=== PATIENT | male | born 1965 | race Caucasian/White ===

== ENCOUNTER 2023-03-21 12:44 | Inpatient (IN) | payer OTHER ==
[2023-03-21 13:03] VITALS: BMI 28.4
[2023-03-21] MEDS ORDERED: NALOXONE HCL 0.4 MG/ML VIAL IM PRN (13:56)
[2023-03-21] MEDS ORDERED: hydrOXYzine PAMOATE 25 MG CAPSULE (FP) PO PRN (13:56)
[2023-03-21] MEDS ORDERED: COLLOIDAL OATMEAL 1 BAR EACH TP PRN (13:56)
[2023-03-21] MEDS ORDERED: IBUPROFEN 600 MG TABLET (FP) PO PRN (13:56)
[2023-03-21] MEDS ORDERED: POLYETHYLENE GLYCOL (HEALTHYLAX) 3350 17 GM PACKET PO PRN (13:56)
[2023-03-21] MEDS ORDERED: NALOXONE HCL (KLOXXADO) 8 MG SPRAY NS PRN (13:56)
[2023-03-21] MEDS ORDERED: BENZONATATE 200 MG CAPSULE PO PRN (13:56)
[2023-03-21] MEDS ORDERED: ACETAMINOPHEN 325 MG TABLET (FP) PO PRN (13:56)
[2023-03-21] MEDS ORDERED: NICOTINE POLACRILEX 2 MG GUM BUC PRN (13:56)
[2023-03-21] MEDS ORDERED: guaiFENesin 600 MG TABLET.ER (FP) PO PRN (13:56)
[2023-03-21] MEDS ORDERED: IBUPROFEN 400 MG TABLET (FP) PO PRN (13:56)
[2023-03-21] MEDS ORDERED: MAGNESIUM HYDROX 2400MG/30ML ORAL SUSPENSION 30 ML CUP PO PRN (13:56)
[2023-03-21] MEDS ORDERED: TUBERCULIN PPD 5 TU/0.1ML VIAL ID ONE (16:39)
[2023-03-21] MEDS: MAG HYDROX/AL HYDROX/SIMETH 30 ML UNIT-DOSE CUP PO PRN (16:49)
[2023-03-21] MEDS ORDERED: TUBERCULIN PPD 5 TU/0.1ML SYRINGE (IN PATIENT USE ONLY) ID ONE (17:58)
[2023-03-21] MEDS: MELATONIN 5 MG TABLETS PO SCH (22:11)
[2023-03-21] MEDS: THIAMINE HCL 100 MG TABLET (FP) PO SCH (22:11)
[2023-03-22] MEDS: PRENATAL VITAMINS W/ FOLIC ACID TABLET (FP) PO SCH (09:24)
[2023-03-22] MEDS: NICOTINE 14 MG/24 HOURS TOPICAL PATCH TD SCH (09:24)
[2023-03-22] MEDS: LOPERAMIDE HCL 2 MG CAPSULE PO PRN (09:26)
[2023-03-22 13:08] LABS: HEMATOCRIT 42.3 % (35.4-49); MCH 29.4 pg (25.7-33.7); MEAN CELL VOLUME 89.1 fl (80-96); MEAN PLT VOLUME 9.6 fl (7.5-11.1); PLATELET COUNT 327 10^3/uL (134-434); RBC 4.76 M/mm3 (4.00-5.60); RDW 14.6 % (11.9-15.9); WHITE BLOOD COUNT 9.1 K/mm3 (4.0-10.0)
[2023-03-22 13:21] LABS: POTASSIUM 4.5 mmol/L (3.5-5.1)
[2023-03-22 13:24] LABS: CALCIUM 9.3 mg/dL (8.5-10.1)
[2023-03-22 13:25] LABS: ALBUMIN 3.2 g/dl (3.4-5.0); BLOOD UREA NITROGEN 23.6 mg/dL (7-18)
[2023-03-22 13:28] LABS: CREATININE 1.2 mg/dL (0.55-1.3)
[2023-03-22 13:29] LABS: TOT PROT 6.3 g/dl (6.4-8.2)
[2023-03-22 13:30] LABS: BILIRUBIN,TOTAL 0.2 mg/dL (0.2-1)
[2023-03-22 13:48] LABS: SYPHILIS W/ RPR CONF NON-REACTIVE (NONREACTIVE)
[2023-03-22] MEDS: THIAMINE HCL 100 MG TABLET (FP) PO SCH (21:38)
[2023-03-22] MEDS: MELATONIN 5 MG TABLETS PO SCH (21:38)
[2023-03-23] MEDS: MAG HYDROX/AL HYDROX/SIMETH 30 ML UNIT-DOSE CUP PO PRN (09:44)
[2023-03-23] MEDS: NICOTINE 14 MG/24 HOURS TOPICAL PATCH TD SCH (09:44)
[2023-03-23] MEDS: PRENATAL VITAMINS W/ FOLIC ACID TABLET (FP) PO SCH (09:44)
[2023-03-23] MEDS ORDERED: NICOTINE 14 MG/24 HOURS TOPICAL PATCH TD PRN (14:13)
[2023-03-23 14:53] LABS: PH,URINE 5.5 (5.0-8.0); URINE APPEARANCE CLEAR; URINE BILIRUBIN NEGATIVE (NEGATIVE); URINE COLOR YELLOW; URINE GLUCOSE (UA) NEGATIVE (NEGATIVE); URINE KETONE NEGATIVE (NEGATIVE); URINE LEUK ESTERASE NEGATIVE (NEGATIVE); URINE NITRITE NEGATIVE (NEGATIVE); URINE PROTEIN NEGATIVE (NEGATIVE); URINE UROBILINOGEN 0.2 mg/dL (0.2-1.0)
[2023-03-23] MEDS: MELATONIN 5 MG TABLETS PO SCH (21:21)
[2023-03-23] MEDS: THIAMINE HCL 100 MG TABLET (FP) PO SCH (21:21)
[2023-03-23] MEDS: LOPERAMIDE HCL 2 MG CAPSULE PO PRN (21:22)
[2023-03-23 21:31] LABS: HIV INTERPRETATION NEGATIVE (NEGATIVE)
[2023-03-24] MEDS: PRENATAL VITAMINS W/ FOLIC ACID TABLET (FP) PO SCH (10:08)
[2023-03-24] MEDS: MELATONIN 5 MG TABLETS PO SCH (21:27)
[2023-03-24] MEDS: THIAMINE HCL 100 MG TABLET (FP) PO SCH (21:27)
[2023-03-24] MEDS: MAG HYDROX/AL HYDROX/SIMETH 30 ML UNIT-DOSE CUP PO PRN (21:28)
[2023-03-25] MEDS: BENZOCAINE/MENTHOL (CHLORASEPTIC ) LOZENGE MM PRN ×2 (09:53→21:30)
[2023-03-25] MEDS: PRENATAL VITAMINS W/ FOLIC ACID TABLET (FP) PO SCH (09:53)
[2023-03-25] MEDS: MAG HYDROX/AL HYDROX/SIMETH 30 ML UNIT-DOSE CUP PO PRN ×2 (09:54→21:28)
[2023-03-25] MEDS ORDERED: BENZONATATE 200 MG CAPSULE PO PRN (13:51)
[2023-03-25] MEDS: THIAMINE HCL 100 MG TABLET (FP) PO SCH (21:28)
[2023-03-25] MEDS: MELATONIN 5 MG TABLETS PO SCH (21:29)
[2023-03-26] MEDS: BENZOCAINE/MENTHOL (CHLORASEPTIC ) LOZENGE MM PRN ×2 (05:56→21:15)
[2023-03-26] MEDS: PRENATAL VITAMINS W/ FOLIC ACID TABLET (FP) PO SCH (09:15)
[2023-03-26] MEDS: MAG HYDROX/AL HYDROX/SIMETH 30 ML UNIT-DOSE CUP PO PRN ×2 (09:36→21:14)
[2023-03-26] MEDS: MELATONIN 5 MG TABLETS PO SCH (21:14)
[2023-03-26] MEDS: THIAMINE HCL 100 MG TABLET (FP) PO SCH (21:14)
[2023-03-27] MEDS: BENZOCAINE/MENTHOL (CHLORASEPTIC ) LOZENGE MM PRN ×2 (06:30→20:38)
[2023-03-27] MEDS: PRENATAL VITAMINS W/ FOLIC ACID TABLET (FP) PO SCH (09:41)
[2023-03-27] MEDS ORDERED: P-EPHED 60MG/TRIPROLIDI 2.5MG TABLET PO ONE (20:30)
[2023-03-27] MEDS: MAG HYDROX/AL HYDROX/SIMETH 30 ML UNIT-DOSE CUP PO PRN (21:20)
[2023-03-27] MEDS: THIAMINE HCL 100 MG TABLET (FP) PO SCH (21:20)
[2023-03-27] MEDS: MELATONIN 5 MG TABLETS PO SCH (21:20)
[2023-03-28] MEDS: BENZOCAINE/MENTHOL (CHLORASEPTIC ) LOZENGE MM PRN (06:35)
[2023-03-28] MEDS: PRENATAL VITAMINS W/ FOLIC ACID TABLET (FP) PO SCH (09:38)
[2023-03-28] MEDS: P-EPHED 60MG/TRIPROLIDI 2.5MG TABLET PO PRN (18:01)
[2023-03-28] MEDS: THIAMINE HCL 100 MG TABLET (FP) PO SCH (21:21)
[2023-03-28] MEDS: MELATONIN 5 MG TABLETS PO SCH (21:21)
[2023-03-29] MEDS: P-EPHED 60MG/TRIPROLIDI 2.5MG TABLET PO PRN ×2 (00:17→06:19)
[2023-03-29 08:29] VITALS: BP 122/82; PULSE 64; RESP 18; TEMP 97.3
== END 2023-03-29 09:06 | disposition home or self-care (01) | DRG 772 ==
LOC: YASAS 12:44 → Y3E 16:18
PROVIDERS: ADMIT Allergy & Immunology; ATTEND Psychiatry & Neurology Pain Medicine
PROC: HZ42ZZZ Group Counseling for Substance Abuse Treatment, Cognitive-Behavioral (ICD-10-PCS; principal; 2023-03-21)
DX: F10.20 Alcohol dependence, uncomplicated (principal); F14.20 Cocaine dependence, uncomplicated; F12.20 Cannabis dependence, uncomplicated; F17.210 Nicotine dependence, cigarettes, uncomplicated; J02.9 Acute pharyngitis, unspecified; K21.9 Gastro-esophageal reflux disease without esophagitis
CPT/HCPCS: 0241U-QW; 36415; 80053; 80307; 81003; 85027; 86780; 87389; 87635; 87811; 93005; 93010

== ENCOUNTER 2023-04-03 14:25 | Inpatient (IN) | payer OTHER ==
[2023-04-03 14:53] VITALS: BMI 26.2
[2023-04-03] MEDS ORDERED: guaiFENesin 600 MG TABLET.ER (FP) PO PRN (18:35)
[2023-04-03] MEDS ORDERED: IBUPROFEN 400 MG TABLET (FP) PO PRN (18:35)
[2023-04-03] MEDS ORDERED: BENZONATATE 200 MG CAPSULE PO PRN (18:35)
[2023-04-03] MEDS ORDERED: LOPERAMIDE HCL 2 MG CAPSULE PO PRN (18:35)
[2023-04-03] MEDS ORDERED: NALOXONE HCL 0.4 MG/ML VIAL IM PRN (18:35)
[2023-04-03] MEDS ORDERED: NALOXONE HCL (KLOXXADO) 8 MG SPRAY NS PRN (18:35)
[2023-04-03] MEDS ORDERED: ACETAMINOPHEN 325 MG TABLET (FP) PO PRN (18:35)
[2023-04-03] MEDS ORDERED: BISMUTH SUBSALICYLATE 524 MG/30 ML PO PRN (18:35)
[2023-04-03] MEDS ORDERED: MAGNESIUM HYDROX 2400MG/30ML ORAL SUSPENSION 30 ML CUP PO PRN (18:35)
[2023-04-03] MEDS ORDERED: IBUPROFEN 600 MG TABLET (FP) PO PRN (18:35)
[2023-04-03] MEDS ORDERED: BENZOCAINE/MENTHOL (CHLORASEPTIC ) LOZENGE MM PRN (18:35)
[2023-04-03] MEDS ORDERED: ONDANSETRON *ODT* 4 MG TABLET SL PRN (18:35)
[2023-04-03] MEDS ORDERED: POLYETHYLENE GLYCOL (HEALTHYLAX) 3350 17 GM PACKET PO PRN (18:35)
[2023-04-03] MEDS ORDERED: MAG HYDROX/AL HYDROX/SIMETH 30 ML UNIT-DOSE CUP PO PRN (18:35)
[2023-04-03] MEDS ORDERED: DICYCLOMINE HCL 10 MG CAPSULE PO PRN (18:35)
[2023-04-03] MEDS: MELATONIN 5 MG TABLETS PO SCH (22:40)
[2023-04-03] MEDS: hydrOXYzine PAMOATE 25 MG CAPSULE (FP) PO PRN (22:41)
[2023-04-03] MEDS: METHOCARBAMOL 500 MG TABLET PO PRN (22:41)
[2023-04-03] MEDS: THIAMINE HCL 100 MG TABLET (FP) PO SCH (22:41)
[2023-04-04] MEDS: hydrOXYzine PAMOATE 25 MG CAPSULE (FP) PO PRN ×2 (10:04→22:24)
[2023-04-04] MEDS: METHOCARBAMOL 500 MG TABLET PO PRN ×2 (10:04→22:27)
[2023-04-04] MEDS: PRENATAL VITAMINS W/ FOLIC ACID TABLET (FP) PO SCH (10:04)
[2023-04-04 13:15] LABS: HEMATOCRIT 39.5 % (35.4-49); HEMOGLOBIN 12.9 GM/dL (11.7-16.9); MCH 29.5 pg (25.7-33.7); MCHC 32.8 g/dl (32.0-35.9); MEAN CELL VOLUME 89.9 fl (80-96); MEAN PLT VOLUME 8.7 fl (7.5-11.1); PLATELET COUNT 305 10^3/uL (134-434); RBC 4.39 M/mm3 (4.00-5.60); RDW 14.5 % (11.9-15.9); WHITE BLOOD COUNT 9.3 K/mm3 (4.0-10.0)
[2023-04-04 13:20] LABS: CHLORIDE 107 mmol/L (98-107); POTASSIUM 4.5 mmol/L (3.5-5.1); SODIUM 141 mmol/L (136-145)
[2023-04-04 13:28] LABS: ANION GAP 7 mmol/L (4-13); CALCIUM 9.1 mg/dL (8.5-10.1); CO2 26 mmol/L (21-32); GLUCOSE,RANDOM 68 mg/dL (74-106)
[2023-04-04 13:29] LABS: BLOOD UREA NITROGEN 18.6 mg/dL (7-18)
[2023-04-04 13:31] LABS: CREATININE 1.2 mg/dL (0.55-1.3); SGOT/AST 20 U/L (15-37)
[2023-04-04 13:32] LABS: SGPT/ALT 37 U/L (13-61)
[2023-04-04 13:33] LABS: BILIRUBIN,TOTAL 0.2 mg/dL (0.2-1)
[2023-04-04 13:34] LABS: ALK PHOS 83 U/L (45-117)
[2023-04-04] MEDS: THIAMINE HCL 100 MG TABLET (FP) PO SCH (22:24)
[2023-04-04] MEDS: MELATONIN 5 MG TABLETS PO SCH (22:24)
[2023-04-05] MEDS: PRENATAL VITAMINS W/ FOLIC ACID TABLET (FP) PO SCH (10:53)
[2023-04-05] MEDS: hydrOXYzine PAMOATE 25 MG CAPSULE (FP) PO PRN (22:24)
[2023-04-05] MEDS: METHOCARBAMOL 500 MG TABLET PO PRN (22:24)
[2023-04-05] MEDS: THIAMINE HCL 100 MG TABLET (FP) PO SCH (22:24)
[2023-04-05] MEDS: MELATONIN 5 MG TABLETS PO SCH (22:26)
[2023-04-06] MEDS ORDERED: P-EPHED 60MG/TRIPROLIDI 2.5MG TABLET PO PRN (06:17)
[2023-04-06 09:32] VITALS: BP 134/78; PULSE 64; RESP 18; TEMP 97.8
[2023-04-06] MEDS: PRENATAL VITAMINS W/ FOLIC ACID TABLET (FP) PO SCH (10:15)
== END 2023-04-06 11:17 | disposition home or self-care (01) | DRG 774 ==
LOC: YASAS 14:25 → Y6N 19:03
PROVIDERS: ADMIT Allergy & Immunology; ATTEND Surgery
PROC: HZ2ZZZZ Detoxification Services for Substance Abuse Treatment (ICD-10-PCS; principal; 2023-04-03)
DX: F10.20 Alcohol dependence, uncomplicated (principal); F14.20 Cocaine dependence, uncomplicated; F12.20 Cannabis dependence, uncomplicated; F17.210 Nicotine dependence, cigarettes, uncomplicated; I10 Essential (primary) hypertension; K21.9 Gastro-esophageal reflux disease without esophagitis; Z59.00 Homelessness unspecified
CPT/HCPCS: 36415; 80053; 80307; 85027; 86780; 87635

== ENCOUNTER 2024-04-05 20:11 | Inpatient (IN) | payer OTHER ==
[2024-04-05 20:42] VITALS: BMI 26.1
[2024-04-05] MEDS ORDERED: MAG HYDROX/AL HYDROX/SIMETH 30 ML UNIT-DOSE CUP PO PRN (21:31)
[2024-04-05] MEDS ORDERED: NICOTINE POLACRILEX 2 MG GUM BUC PRN (21:31)
[2024-04-05] MEDS ORDERED: MAGNESIUM HYDROX 2400MG/30ML ORAL SUSPENSION 30 ML CUP PO PRN (21:31)
[2024-04-05] MEDS ORDERED: BENZONATATE 200 MG CAPSULE PO PRN (21:31)
[2024-04-05] MEDS ORDERED: POLYETHYLENE GLYCOL (HEALTHYLAX) 3350 17 GM PACKET PO PRN (21:31)
[2024-04-05] MEDS ORDERED: LOPERAMIDE HCL 2 MG CAPSULE PO PRN (21:31)
[2024-04-05] MEDS ORDERED: guaiFENesin 600 MG TABLET.ER (FP) PO PRN (21:31)
[2024-04-05] MEDS ORDERED: NALOXONE (NARCAN) HCL 4 MG/0.1 ML SPRAY NS PRN (21:31)
[2024-04-05] MEDS: THIAMINE 100 MG TABLET PO SCH (22:52)
[2024-04-05] MEDS: IBUPROFEN 600 MG TABLET (FP) PO PRN (22:52)
[2024-04-05] MEDS: hydrOXYzine PAMOATE 25 MG CAPSULE (FP) PO PRN (22:53)
[2024-04-05] MEDS: MELATONIN 5 MG TABLETS PO SCH (22:54)
[2024-04-06] MEDS: PRENATAL VITAMINS W/ FOLIC ACID TABLET (FP) PO SCH (09:29)
[2024-04-06] MEDS: NICOTINE 14 MG/24 HOURS TOPICAL PATCH TD SCH (09:29)
[2024-04-06] MEDS ORDERED: TUBERCULIN PPD 5 TU/0.1ML VIAL ID ONE (10:52)
[2024-04-06] MEDS: TUBERCULIN PPD 5 TU/0.1ML SYRINGE (IN PATIENT USE ONLY) ID ONE (11:03)
[2024-04-06] MEDS: FLU VACCINE (FLULAVAL) PF 45 MCG/0.5 ML SYRINGE 2024-2025 IM ONE (11:06)
[2024-04-06 11:10] LABS: HEMATOCRIT 43.1 % (35.4-49); HEMOGLOBIN 13.9 GM/dL (11.7-16.9); MCH 29.3 pg (25.7-33.7); MCHC 32.4 g/dl (32.0-35.9); MEAN CELL VOLUME 90.7 fl (80-96); MEAN PLT VOLUME 9.1 fl (7.5-11.1); PLATELET COUNT 388 10^3/uL (134-434); RBC 4.75 M/mm3 (4.00-5.60); RDW 15.2 % (11.9-15.9); WHITE BLOOD COUNT 6.7 K/mm3 (4.0-10.0)
[2024-04-06 11:21] LABS: URINE APPEARANCE CLEAR; URINE BILIRUBIN NEGATIVE (NEGATIVE); URINE COLOR YELLOW; URINE GLUCOSE (UA) NEGATIVE (NEGATIVE); URINE KETONE NEGATIVE (NEGATIVE); URINE LEUK ESTERASE NEGATIVE (NEGATIVE); URINE NITRITE NEGATIVE (NEGATIVE); URINE PROTEIN NEGATIVE (NEGATIVE); URINE UROBILINOGEN 0.2 mg/dL (0.2-1.0)
[2024-04-06 13:30] LABS: CHLORIDE 106 mmol/L (98-107); POTASSIUM 4.3 mmol/L (3.5-5.1); SODIUM 138 mmol/L (136-145)
[2024-04-06 13:33] LABS: CALCIUM 9.7 mg/dL (8.5-10.1)
[2024-04-06 13:34] LABS: ALBUMIN 3.9 g/dl (3.4-5.0); ANION GAP 8 mmol/L (4-13); BLOOD UREA NITROGEN 24.4 mg/dL (7-18); CO2 25 mmol/L (21-32); GLUCOSE,RANDOM 112 mg/dL (74-106)
[2024-04-06 13:37] LABS: CREATININE 1.1 mg/dL (0.55-1.3); SGOT/AST 42 U/L (15-37); SGPT/ALT 72 U/L (13-61)
[2024-04-06 13:39] LABS: BILIRUBIN,TOTAL 0.4 mg/dL (0.2-1)
[2024-04-06 13:41] LABS: ALK PHOS 113 U/L (45-117)
[2024-04-06 13:42] LABS: TOT PROT 7.5 g/dl (6.4-8.2)
[2024-04-06] MEDS: MELATONIN 5 MG TABLETS PO SCH (21:15)
[2024-04-07] MEDS ORDERED: risperiDONE 1 MG TABLET PO SCH (10:38)
[2024-04-07] MEDS: hydrOXYzine PAMOATE 25 MG CAPSULE (FP) PO PRN (10:53)
[2024-04-07] MEDS: risperiDONE 0.25 MG TABLET PO SCH (10:55)
[2024-04-07] MEDS: risperiDONE 1 MG TABLET PO SCH (12:36)
[2024-04-08] MEDS: IBUPROFEN 400 MG TABLET (FP) PO PRN (21:24)
[2024-04-09] MEDS: VITAMINS A AND D TOPICAL OINTMENT TP SCH (13:29)
[2024-04-10] MEDS: BACLOFEN 10 MG TABLET (FP) PO SCH (10:44)
[2024-04-10 11:40] LABS: INR 0.99 (0.83-1.09); PROTHROMBIN TIME (PATIENT) 11.4 SEC (9.7-13.0)
[2024-04-12] MEDS: ACETAMINOPHEN 325 MG TABLET (FP) PO PRN (20:34)
[2024-04-14] MEDS: BENZOCAINE/MENTHOL (CHLORASEPTIC ) LOZENGE MM PRN (07:06)
[2024-04-17 07:08] VITALS: RESP 16
[2024-04-18 06:54] VITALS: BP 140/83; PULSE 60; TEMP 97.9
[2024-04-18] MEDS: NALOXONE (NYS OPIOID OVERDOSE PROGRAM) 4 MG/0.1 ML SPRAY NS SCH (09:17)
== END 2024-04-18 09:40 | disposition home or self-care (01) | DRG 772 ==
LOC: YASAS 20:11 → Y5N 22:11
PROVIDERS: ADMIT Allergy & Immunology; ATTEND Psychiatry & Neurology Pain Medicine
PROC: HZ42ZZZ Group Counseling for Substance Abuse Treatment, Cognitive-Behavioral (ICD-10-PCS; principal; 2024-04-05)
DX: F10.20 Alcohol dependence, uncomplicated (principal); F14.20 Cocaine dependence, uncomplicated; F13.20 Sedative, hypnotic or anxiolytic dependence, uncomplicated; F12.20 Cannabis dependence, uncomplicated; F17.210 Nicotine dependence, cigarettes, uncomplicated; F19.282 Other psychoactive substance dependence with psychoactive substance-induced sleep disorder; F19.280 Other psychoactive substance dependence with psychoactive substance-induced anxiety disorder; F19.24 Other psychoactive substance dependence with psychoactive substance-induced mood disorder; E72.20 Disorder of urea cycle metabolism, unspecified; K21.9 Gastro-esophageal reflux disease without esophagitis; L85.3 Xerosis cutis
CPT/HCPCS: 0241U-QW; 36415; 80053; 80305; 80307; 81003; 82140; 82652; 83735; 85027; 85610; 86780; 86803; 87811; 90656; 93005; 93010; G0008; J0475

== ENCOUNTER 2024-09-27 12:05 | Inpatient (IN) | payer OTHER ==
[2024-09-27 12:24] VITALS: BMI 26.4
[2024-09-27] MEDS ORDERED: guaiFENesin 600 MG TABLET.ER (FP) PO PRN (12:25)
[2024-09-27] MEDS ORDERED: hydrOXYzine PAMOATE 25 MG CAPSULE (FP) PO PRN (12:25)
[2024-09-27] MEDS ORDERED: MAGNESIUM HYDROX 2400MG/30ML ORAL SUSPENSION 30 ML CUP PO PRN (12:25)
[2024-09-27] MEDS ORDERED: POLYETHYLENE GLYCOL (HEALTHYLAX) 3350 17 GM PACKET PO PRN (12:25)
[2024-09-27] MEDS ORDERED: ACETAMINOPHEN 325 MG TABLET (FP) PO PRN (12:25)
[2024-09-27] MEDS ORDERED: NICOTINE POLACRILEX 2 MG GUM BUC PRN (12:25)
[2024-09-27] MEDS ORDERED: NALOXONE (NARCAN) HCL 4 MG/0.1 ML SPRAY NS PRN (12:25)
[2024-09-27] MEDS ORDERED: IBUPROFEN 400 MG TABLET (FP) PO PRN (12:25)
[2024-09-27] MEDS ORDERED: LOPERAMIDE HCL 2 MG CAPSULE PO PRN (12:25)
[2024-09-27] MEDS ORDERED: BENZOCAINE/MENTHOL (CHLORASEPTIC ) LOZENGE MM PRN (12:25)
[2024-09-27] MEDS ORDERED: MAG HYDROX/AL HYDROX/SIMETH 30 ML UNIT-DOSE CUP PO PRN (12:25)
[2024-09-27] MEDS ORDERED: BENZONATATE 200 MG CAPSULE PO PRN (12:25)
[2024-09-27] MEDS ORDERED: NALTREXONE HCL 50 MG TABLET PO ONE (12:39)
[2024-09-27] MEDS: IBUPROFEN 600 MG TABLET (FP) PO PRN (14:33)
[2024-09-27] MEDS: PRENATAL VITAMINS W/ FOLIC ACID TABLET (FP) PO SCH (14:39)
[2024-09-27] MEDS: LIDOCAINE 5% TOPICAL PATCH TP SCH (15:36)
[2024-09-27] MEDS: NALTREXONE HCL 50 MG TABLET PO ONE (15:37)
[2024-09-27] MEDS: MELATONIN 5 MG TABLETS PO SCH (21:38)
[2024-09-27] MEDS: LIDOCAINE PATCH REMOVAL MC SCH (21:38)
[2024-09-27] MEDS: THIAMINE 100 MG TABLET PO SCH (21:38)
[2024-09-27] MEDS: hydrOXYzine PAMOATE 25 MG CAPSULE (FP) PO PRN (21:39)
[2024-09-27 23:53] LABS: URINE APPEARANCE CLEAR; URINE BILIRUBIN NEGATIVE (NEGATIVE); URINE COLOR YELLOW; URINE GLUCOSE (UA) NEGATIVE (NEGATIVE); URINE KETONE TRACE (NEGATIVE); URINE LEUK ESTERASE NEGATIVE (NEGATIVE); URINE NITRITE NEGATIVE (NEGATIVE); URINE PROTEIN NEGATIVE (NEGATIVE); URINE UROBILINOGEN 0.2 mg/dL (0.2-1.0)
[2024-09-28] MEDS: NALTREXONE HCL 50 MG TABLET PO SCH (10:05)
[2024-09-28 11:35] LABS: MCHC 31.4 g/dl (32.3-36.5); MEAN CELL VOLUME 91.6 fl (79.0-92.2); MEAN PLT VOLUME 11.2 fl (9.4-12.4); RDW 14.0 % (12.2-16.1)
[2024-09-28 11:42] LABS: CO2 32.0 mmol/L (21-32); GLUCOSE,RANDOM 106.0 mg/dL (74-106)
[2024-09-28 11:44] LABS: SGPT/ALT 33.0 U/L (13-61)
[2024-09-28 11:45] LABS: CREATININE 1.1 mg/dL (0.55-1.3); SGOT/AST 26.0 U/L (15-37)
[2024-09-28 11:46] LABS: TOT PROT 7.6 g/dl (6.4-8.2)
[2024-09-28 11:47] LABS: ALK PHOS 112.0 U/L (45-117)
[2024-09-28 14:56] LABS: SYPHILIS W/ RPR CONF NON-REACTIVE (NONREACTIVE)
[2024-09-28 15:47] LABS: HIV INTERPRETATION NEGATIVE (NEGATIVE)
[2024-09-28 17:12] LABS: HCV DIAGNOSTIC IN-HOUSE W/RFLX NON-REACTIVE (NONREACTIVE)
[2024-09-28 17:15] LABS: HCV DIAGNOSTIC IN-HOUSE W/RFLX NON-REACTIVE (NONREACTIVE)
[2024-10-01] MEDS: LIDOCAINE 5% TOPICAL PATCH TP SCH (10:23)
[2024-10-01] MEDS: HYDROCORTISONE 0.5% TOPICAL CREAM 30 GM TUBE TP PRN (14:40)
[2024-10-01] MEDS: LIDOCAINE PATCH REMOVAL MC SCH (21:15)
[2024-10-06] MEDS ORDERED: INSULIN (NOVOLOG) ASPART 100 UNITS/ML 10ML VIAL ONE (21:44)
[2024-10-06] MEDS ORDERED: INSULIN GLARGINE (LANTUS) 100 UNITS/ML UNITS SQ ONE (21:45)
[2024-10-09] MEDS ORDERED: NALTREXONE HCL 50 MG TABLET PO ONE (09:48)
[2024-10-09] MEDS ORDERED: NALTREXONE HCL 50 MG TABLET PO SCH (10:45)
[2024-10-09] MEDS: NALTREXONE HCL 50 MG TABLET PO ONE (11:14)
[2024-10-10] MEDS ORDERED: NALTREXONE HCL 50 MG TABLET PO SCH (10:00)
[2024-10-11 06:56] VITALS: BP 112/73; PULSE 66; RESP 18; TEMP 96.9
== END 2024-10-11 09:17 | disposition home or self-care (01) | DRG 772 ==
LOC: YASAS 12:05 → Y3E 15:15
PROVIDERS: ADMIT Allergy & Immunology; ATTEND Psychiatry & Neurology Pain Medicine
PROC: HZ42ZZZ Group Counseling for Substance Abuse Treatment, Cognitive-Behavioral (ICD-10-PCS; principal; 2024-09-27)
DX: F14.20 Cocaine dependence, uncomplicated (principal); F10.20 Alcohol dependence, uncomplicated; F17.210 Nicotine dependence, cigarettes, uncomplicated; F19.282 Other psychoactive substance dependence with psychoactive substance-induced sleep disorder; F19.280 Other psychoactive substance dependence with psychoactive substance-induced anxiety disorder; F19.24 Other psychoactive substance dependence with psychoactive substance-induced mood disorder; F31.9 Bipolar disorder, unspecified; F41.9 Anxiety disorder, unspecified; F43.10 Post-traumatic stress disorder, unspecified; I10 Essential (primary) hypertension; L30.9 Dermatitis, unspecified
CPT/HCPCS: 36415; 80053; 80307; 81003; 85027; 86780; 86803; 87389; 93005; 93010

== ENCOUNTER 2024-11-15 11:53 | Inpatient (IN) | payer OTHER ==
[2024-11-15 12:08] VITALS: BMI 25.8
[2024-11-15] MEDS ORDERED: BENZOCAINE/MENTHOL (CHLORASEPTIC ) LOZENGE MM PRN (12:30)
[2024-11-15] MEDS ORDERED: guaiFENesin 600 MG TABLET.ER (FP) PO PRN (12:30)
[2024-11-15] MEDS ORDERED: IBUPROFEN 400 MG TABLET (FP) PO PRN (12:30)
[2024-11-15] MEDS ORDERED: LOPERAMIDE HCL 2 MG CAPSULE PO PRN (12:30)
[2024-11-15] MEDS ORDERED: NALOXONE (NARCAN) HCL 4 MG/0.1 ML SPRAY NS PRN (12:30)
[2024-11-15] MEDS ORDERED: POLYETHYLENE GLYCOL (HEALTHYLAX) 3350 17 GM PACKET PO PRN (12:30)
[2024-11-15] MEDS ORDERED: NICOTINE POLACRILEX 2 MG GUM BUC PRN (12:30)
[2024-11-15] MEDS ORDERED: MAGNESIUM HYDROX 2400MG/30ML ORAL SUSPENSION 30 ML CUP PO PRN (12:30)
[2024-11-15] MEDS ORDERED: MAG HYDROX/AL HYDROX/SIMETH 30 ML UNIT-DOSE CUP PO PRN (12:30)
[2024-11-15] MEDS ORDERED: BENZONATATE 200 MG CAPSULE PO PRN (12:30)
[2024-11-15] MEDS ORDERED: hydrOXYzine PAMOATE 25 MG CAPSULE (FP) PO PRN (12:33)
[2024-11-15] MEDS: PRENATAL VITAMINS W/ FOLIC ACID TABLET (FP) PO SCH (13:28)
[2024-11-15] MEDS: CLINDAMYCIN HCL 150 MG CAPSULE (FP) PO SCH (14:47)
[2024-11-15] MEDS: IBUPROFEN 600 MG TABLET (FP) PO PRN (20:00)
[2024-11-15] MEDS: LIDOCAINE PATCH REMOVAL MC SCH (21:16)
[2024-11-15] MEDS: CLINDAMYCIN PHOSPHATE 1% TOPICAL GEL 30 GM TUBE TP SCH (21:52)
[2024-11-15] MEDS: MELATONIN 5 MG TABLETS PO SCH (21:52)
[2024-11-15] MEDS: BACLOFEN 10 MG TABLET (FP) PO SCH (21:52)
[2024-11-15] MEDS: THIAMINE 100 MG TABLET PO SCH (21:52)
[2024-11-16 00:20] LABS: URINE APPEARANCE TURBID; URINE BILIRUBIN NEGATIVE (NEGATIVE); URINE COLOR YELLOW; URINE GLUCOSE (UA) NEGATIVE (NEGATIVE); URINE KETONE NEGATIVE (NEGATIVE); URINE LEUK ESTERASE NEGATIVE (NEGATIVE); URINE NITRITE NEGATIVE (NEGATIVE); URINE PROTEIN NEGATIVE (NEGATIVE); URINE UROBILINOGEN 0.2 mg/dL (0.2-1.0)
[2024-11-16] MEDS: CLINDAMYCIN HCL 150 MG CAPSULE (FP) PO SCH (07:56)
[2024-11-16] MEDS: NALTREXONE HCL 50 MG TABLET PO SCH (09:35)
[2024-11-16] MEDS: LIDOCAINE 5% TOPICAL PATCH TP SCH (09:35)
[2024-11-16 13:26] LABS: MCHC 31.6 g/dl (32.3-36.5); MEAN CELL VOLUME 91.3 fl (79.0-92.2); MEAN PLT VOLUME 10.5 fl (9.4-12.4); RDW 13.8 % (12.2-16.1)
[2024-11-16 13:44] LABS: GLUCOSE,RANDOM 175.0 mg/dL (74-106); TOT PROT 6.2 g/dl (6.4-8.2)
[2024-11-16 13:45] LABS: CO2 27.0 mmol/L (21-32)
[2024-11-16 13:47] LABS: ALK PHOS 78.0 U/L (40-150)
[2024-11-16 13:49] LABS: SGOT/AST 27.0 U/L (5-34); SGPT/ALT 28.0 U/L (0-55)
[2024-11-16 13:50] LABS: CREATININE 0.88 mg/dL (0.55-1.3)
[2024-11-16 14:12] LABS: HCV DIAGNOSTIC IN-HOUSE W/RFLX NON-REACTIVE (NONREACTIVE); SYPHILIS W/ RPR CONF NON-REACTIVE (NONREACTIVE)
[2024-11-19] MEDS: SULFAMETHOXAZOLE/TRIMETHOPRIM 800MG/160MG D.S. TABLET PO SCH (10:12)
[2024-11-20] MEDS: hydrOXYzine PAMOATE 25 MG CAPSULE (FP) PO PRN (21:08)
[2024-11-23] MEDS: hydrOXYzine PAMOATE 25 MG CAPSULE (FP) PO PRN (20:24)
[2024-11-26] MEDS: hydrOXYzine PAMOATE 25 MG CAPSULE (FP) PO PRN (21:30)
[2024-11-27] MEDS ORDERED: hydrOXYzine PAMOATE 50 MG CAPSULE (FP) PO PRN (13:15)
[2024-11-27] MEDS: SUVOREXANT 10 MG TABLET PO PRN (21:05)
[2024-11-29] MEDS: SUVOREXANT 10 MG TABLET PO SCH (21:23)
[2024-12-02] MEDS: ACETAMINOPHEN 325 MG TABLET (FP) PO PRN (09:07)
[2024-12-03] MEDS: MINERAL OIL/PETROLAT/WATER TOPICAL CREAM 113 GM JAR TP SCH (21:38)
[2024-12-06 06:48] VITALS: BP 135/83; PULSE 60; RESP 20; TEMP 97.2
== END 2024-12-06 09:37 | disposition home or self-care (01) | DRG 772 ==
LOC: YASAS 11:53 → Y3NR 13:29 → Y3E 11-16 17:50 → Y3NR 11-26 10:53 → Y3E 11-26 10:55
PROVIDERS: ADMIT Allergy & Immunology; ATTEND Psychiatry & Neurology Pain Medicine
PROC: HZ42ZZZ Group Counseling for Substance Abuse Treatment, Cognitive-Behavioral (ICD-10-PCS; principal; 2024-11-15)
DX: F14.20 Cocaine dependence, uncomplicated (principal); F10.20 Alcohol dependence, uncomplicated; F17.210 Nicotine dependence, cigarettes, uncomplicated; F31.9 Bipolar disorder, unspecified; F19.282 Other psychoactive substance dependence with psychoactive substance-induced sleep disorder; F19.280 Other psychoactive substance dependence with psychoactive substance-induced anxiety disorder; F19.24 Other psychoactive substance dependence with psychoactive substance-induced mood disorder; F43.10 Post-traumatic stress disorder, unspecified; F41.9 Anxiety disorder, unspecified; I10 Essential (primary) hypertension; K21.9 Gastro-esophageal reflux disease without esophagitis; L30.9 Dermatitis, unspecified
CPT/HCPCS: 36415; 80053; 81003; 83036; 85027; 86780; 86803; 93005; 93010; J0475